=== PATIENT | female | born 1970 | race Caucasian/White ===

== ENCOUNTER 2025-09-26 09:20 | Day surgery (SDC) | payer MEDICARE ==
[2025-09-26] MEDS ORDERED: methylPREDNISolone acetate IM ONE (09:21)
[2025-09-26] MEDS ORDERED: BUPIVACAINE 0.5% VIAL IJ ONE (09:21)
[2025-09-26] MEDS ORDERED: Lactated Ringers 1,000 ML IV ONE (11:05)
[2025-09-26] MEDS ORDERED: propofoL IV ONE (11:21)
--- NOTE | 2025-09-26 14:59 | XRAY ---
Indication: Left knee injection. Intraoperative fluoroscopy provided for 8 seconds. Single digital spot image submitted for interpretation demonstrates needle tip projecting over left femur intercondylar notch. Small amount of contrast injected for needle tip placement. Correlate with intraoperative findings/report.
--- NOTE | 2025-09-26 17:00 | XRAY ---
8 seconds of fluoroscopy was used in surgery for a left intra-articular knee injection.
--- NOTE | 2025-09-26 17:00 | XRAY ---
12 seconds of fluoroscopy was used in surgery for a right intra-articular knee injection.
--- NOTE | 2025-09-27 08:36 | XRAY ---
Indication: Right knee injection. Intraoperative fluoroscopy provided for 12 seconds. Single digital spot image submitted for interpretation demonstrates needle tip projecting over right femur intercondylar notch. Small amount of contrast injected for needle tip placement. Correlate with intraoperative findings/report.
== END 2025-09-26 11:48 | disposition home or self-care (01) ==
LOC: SDC-PAIN 09:20
PROVIDERS: ATTEND Psychiatry & Neurology Pain Medicine
DX: M17.0 Bilateral primary osteoarthritis of knee (principal); R73.03 Prediabetes